=== PATIENT | female | born 1975 | race Caucasian/White ===

== ENCOUNTER → 2017-09-03 | Outpatient (CLI) | payer BC ==
--- NOTE | 2017-09-03 09:46 | REPMRS ---
Patient History The patient states she had a clinical breast exam in 08/21 Patient is nulliparous. Family history of colorectal cancer in paternal grandfather at age 50 or over and colorectal cancer in maternal cousin at age 53. Taking hormonal contraceptives for 25 years. Digital Woman Screen Mammo: September 03, 2017 - Exam #: [id number] Bilateral CC and MLO view(s) were taken. Technologist: Selina Kelly, Technologist Prior study comparison: August 18, 2016, digital woman screen mammo performed at [facility]. August 23, 2015, digital woman screen mammo performed at [facility]. September 20, 2014, digital woman screen mammo performed at [facility]. FINDINGS: There are scattered fibroglandular densities. There has been no change in the appearance of the mammogram from the prior studies. There is a mild amount of scattered fibroglandular density which is fairly symmetric. There is no interval development of dominant mass, architectural distortion, or clustered microcalcification suggestive of malignancy. ASSESSMENT: BI-RADS/ACR category 1 mammogram. Negative. Recommendation Routine screening mammogram in 1 year (for women over age 40). This mammogram was interpreted with the aid of an FDA-approved computer-aided dectection system. Electronically Signed By: Johan Gibbs MD 09/03/17 [id number]
== END ==
LOC: M WHC 08:51
PROVIDERS: ATTEND Nurse Practitioner Women's Health
DX: Z12.31 Encounter for screening mammogram for malignant neoplasm of breast (principal)

== ENCOUNTER → 2017-09-03 | Outpatient (REF) | payer BC | LOC: M SFHCWAGY 09:06 | PROVIDERS: ATTEND Nurse Practitioner Women's Health | DX: Z12.4 Encounter for screening for malignant neoplasm of cervix (principal) ==

== ENCOUNTER → 2018-07-05 | Outpatient (REF) | payer BC ==
[2018-07-07 08:07] LABS: LDL DIRECT 132 mg/dL (0-99)
== END ==
LOC: M LAB REF 18:35
DX: F41.1 Generalized anxiety disorder (principal)
CPT/HCPCS: 83721

== ENCOUNTER 2018-08-09 09:59 | Emergency (ER) | payer BC ==
[2018-08-09 11:04] LABS: ACETAMINOPHEN LEVEL < 2.0 UG/ML (10.0-30.0); ETHYL ALCOHOL (ETHANOL) 0.294 % (0.000-0.010); SALICYLATE LEVEL < 1.7 MG/DL (5.0-30.0)
[2018-08-09 11:17] LABS: ALBUMIN 3.1 GM/DL (3.2-5.2); ALBUMIN/GLOBULIN RATIO 0.76 (1.00-1.93); ALKALINE PHOSPHATASE 214 U/L (45-117); ALT/SGPT 194 U/L (12-78); AMYLASE 31 U/L (25-115); ANION GAP 13 MEQ/L (8-16); AST/SGOT 506 U/L (7-37); BILIRUBIN,DIRECT 0.5 MG/DL (0.0-0.2); BILIRUBIN,TOTAL 1.2 MG/DL (0.2-1.0); BLOOD UREA NITROGEN 10 MG/DL (7-18); CALCIUM LEVEL 7.7 MG/DL (8.5-10.1); CARBON DIOXIDE LEVEL 20 MEQ/L (21-32); CHLORIDE LEVEL 93 MEQ/L (98-107); CREATININE FOR GFR 0.56 MG/DL (0.55-1.30); GLOMERULAR FILTRATION RATE > 60.0 (>58); GLUCOSE, FASTING 152 MG/DL (70-100); LIPASE 429 U/L (73-393); POTASSIUM SERUM 3.9 MEQ/L (3.5-5.1); SODIUM LEVEL 126 MEQ/L (136-145); TOTAL PROTEIN 7.2 GM/DL (6.4-8.2)
[2018-08-09 11:18] LABS: BASO # 0.1 10^3/uL (0.0-0.2); BASO % 2.8 % (0.0-1.0); EOS % 0.8 % (0.0-3.0); HEMATOCRIT 41.1 % (36.0-47.0); IMMATURE GRANULOCYTE % 1.5 % (0-3.0); LYMPH % 25.3 % (24.0-44.0); MEAN CORPUSCULAR HEMOGLOBIN 36.9 pg (27.0-33.0); MEAN CORPUSCULAR HGB CONC 36.5 g/dl (32.0-36.5); MEAN CORPUSCULAR VOLUME 101.2 fl (80.0-96.0); MONO # 0.4 10^3/uL (0.0-0.8); MONO % 10.8 % (0.0-5.0); NEUTROPHILS # 2.4 10^3/uL (1.8-7.7); NEUTROPHILS % 58.8 % (36.0-66.0); PLATELET COUNT, AUTOMATED 197 10^3/uL (150-450); RED BLOOD COUNT 4.06 10^6/uL (4.00-5.40); RED CELL DISTRIBUTION WIDTH 12.5 % (11.5-14.5)
[2018-08-09 11:23] LABS: CONTROL LINE HCG INT CTR LINE PRESENT; HCG, SERUM QUALITATIVE NEGATIVE (NEGATIVE)
[2018-08-09 12:37] LABS: KETONE, URINE AUTO RFX TRACE mg/dL (NEGATIVE); LEUKOCYTE ESTERASE UR AUTO RFX NEGATIVE (NEGATIVE); MUCUS, URINE RFX SMALL (NEGATIVE); NITRITE, URINE AUTO RFX NEGATIVE (NEGATIVE); RBC, URINE AUTO RFX 1 /HPF (0-3); SPECIFIC GRAVITY UR AUTO RFX 1.021 (1.002-1.035); SQUAM EPITHELIAL CELL UR AURFX 7 /HPF (0-6); WBC, URINE AUTO RFX 3 /HPF (0-3)
[2018-08-09 12:48] LABS: AMPHETAMINES LEVEL URINE NEGATIVE (NEGATIVE); BARBITURATES URINE NEGATIVE (NEGATIVE); BENZODIAZEPINES URINE NEGATIVE (NEGATIVE); CANNABINOIDS URINE NEGATIVE (NEGATIVE); COCAINE METABOLITE URINE NEGATIVE (NEGATIVE); METHADONE URINE NEGATIVE (NEGATIVE); OPIATES URINE NEGATIVE (NEGATIVE); PHENCYCLIDINE URINE NEGATIVE (NEGATIVE)
[2018-08-09] MEDS: METOCLOPRAMIDE INJ 10MG/2ML VIAL (J2765) IV (13:03)
[2018-08-09] MEDS: diphenhydrAMINE INJ 50MG/ML VIAL (J1200) IV (13:04)
[2018-08-09 14:15] LABS: HEPATITIS B SURFACE ANTIGEN NEGATIVE (NEGATIVE)
[2018-08-09 14:42] LABS: HEPATITIS B CORE ANTIBODY IGM NEGATIVE (NEGATIVE)
[2018-08-09 14:45] LABS: HEPATITIS A ANTIBODY IGM NEGATIVE (NEGATIVE)
== END 2018-08-09 15:37 | disposition home or self-care (01) ==
LOC: M ED 09:59
DX: K85.20 Alcohol induced acute pancreatitis without necrosis or infection (principal); K70.30 Alcoholic cirrhosis of liver without ascites; I10 Essential (primary) hypertension; Z79.899 Other long term (current) drug therapy; F17.210 Nicotine dependence, cigarettes, uncomplicated
CPT/HCPCS: J1200

== ENCOUNTER → 2018-09-06 | Outpatient (CLI) | payer BC | LOC: M WHC 09:07 | DX: Z12.31 Encounter for screening mammogram for malignant neoplasm of breast (principal) | CPT/HCPCS: 77067 ==

== ENCOUNTER 2019-02-15 09:16 | Inpatient (IN) | payer BC ==
[~2019-02-15] VITALS: Ht 162.6 cm; Wt 86.9 kg
[~2019-02-15 09:16] MED LIST: BUSP15TA47 PO; HYDR-3363 PO; IBUP-1022 PO; LISI20TA PO; PROT1TAB2 PO; REGL10TA6 PO
[2019-02-15] MEDS ORDERED: LORA0.5T11 PO (09:28)
[2019-02-15] MEDS ORDERED: NS 1,000 ML IV ONE (09:30)
[2019-02-15 09:47] LABS: HEMATOCRIT 41.2 % (36.0-47.0); HEMOGLOBIN 14.2 g/dl (12.0-15.5); MEAN CORPUSCULAR HEMOGLOBIN 34.4 pg (27.0-33.0); MEAN CORPUSCULAR HGB CONC 34.5 g/dl (32.0-36.5); MEAN CORPUSCULAR VOLUME 99.8 fl (80.0-96.0); PLATELET COUNT, AUTOMATED 211 10^3/uL (150-450); RED BLOOD COUNT 4.13 10^6/uL (4.00-5.40); WHITE BLOOD COUNT 4.8 10^3/uL (4.0-10.0)
[2019-02-15 10:19] LABS: HCG, SERUM QUALITATIVE NEGATIVE (NEGATIVE)
[2019-02-15 10:53] LABS: ACETAMINOPHEN LEVEL < 2.0 UG/ML (10.0-30.0); ALBUMIN 3.6 GM/DL (3.2-5.2); ALT/SGPT 163 U/L (12-78); BILIRUBIN,DIRECT 0.8 MG/DL (0.0-0.2); BILIRUBIN,TOTAL 1.4 MG/DL (0.2-1.0); BLOOD UREA NITROGEN 11 MG/DL (7-18); CARBON DIOXIDE LEVEL 21 MEQ/L (21-32); CHLORIDE LEVEL 97 MEQ/L (98-107); CPK CREATINE PHOSPHOKINASE 206 U/L (26-192); CREATININE FOR GFR 0.54 MG/DL (0.55-1.30); ETHYL ALCOHOL (ETHANOL) 0.431 % (0.000-0.010); GLOMERULAR FILTRATION RATE > 60.0 (>58); GLUCOSE, FASTING 122 MG/DL (70-100); MAGNESIUM LEVEL 1.9 MG/DL (1.8-2.4); POTASSIUM SERUM 3.7 MEQ/L (3.5-5.1); SALICYLATE LEVEL < 1.7 MG/DL (5.0-30.0); SODIUM LEVEL 132 MEQ/L (136-145); TOTAL PROTEIN 7.4 GM/DL (6.4-8.2)
[2019-02-15] MEDS ORDERED: LORazepam 2 MG/ML VIAL (J2060) IV STA (12:11)
[2019-02-15] MEDS ORDERED: MULTIVITAMIN -ADULT INJECTION 10 ML, THIAMINE INJection 100 MG, FOLIC ACID 1 MG in NS 1... IV ONE (12:15)
[2019-02-15] MEDS ORDERED: ONDANSETRON 4MG/2ML VIAL (J2405) IV ONE ×2 (12:15→15:15)
[2019-02-15 12:27] LABS: AMPHETAMINES LEVEL URINE NEGATIVE (NEGATIVE); BARBITURATES URINE NEGATIVE (NEGATIVE); BENZODIAZEPINES URINE NEGATIVE (NEGATIVE); CANNABINOIDS URINE NEGATIVE (NEGATIVE); COCAINE METABOLITE URINE NEGATIVE (NEGATIVE); METHADONE URINE NEGATIVE (NEGATIVE); OPIATES URINE NEGATIVE (NEGATIVE); PHENCYCLIDINE URINE NEGATIVE (NEGATIVE)
[2019-02-15] MEDS ORDERED: PANTOPRAZOLE 40MG TAB (PROTONIX) PO ONE (16:45)
[2019-02-15] MEDS ORDERED: LORazepam 2 MG TAB PO PRN ×2 (17:00→21:00)
[2019-02-15 18:51] LABS: ETHYL ALCOHOL (ETHANOL) 0.145 % (0.000-0.010)
[2019-02-15] MEDS ORDERED: LORazepam 2 MG TAB PO STA (19:34)
[2019-02-15] MEDS ORDERED: cloNIDine 0.2 MG TAB PO ONE (19:45)
[2019-02-15] MEDS ORDERED: BUSP15TA47 PO (19:53)
[2019-02-15] MEDS ORDERED: HYDR-3363 PO (19:58)
[2019-02-15] MEDS ORDERED: REGL10TA6 PO (19:58)
[2019-02-15] MEDS ORDERED: IBUP1TAB6 PO (19:58)
[2019-02-15] MEDS ORDERED: SUMA50TA2 PO (20:00)
[2019-02-15] MEDS ORDERED: LARI1TAB5 PO (20:00)
[2019-02-15] MEDS ORDERED: THIAMINE HCL 200 MG/2 ML VIAL (J3411) IV ONE (20:00)
[2019-02-15] MEDS ORDERED: SODIUM CHLORIDE 0.9% 1000ML IV ONE (20:15)
[2019-02-15] MEDS: NS 1,000 ML IV SCH (20:18)
[2019-02-15] MEDS ORDERED: METOPROLOL 5 MG/5 ML VIAL IV STA (20:50)
--- NOTE | 2019-02-15 21:23 | HPEPDOC ---
[facility] Medical History & Physical Date of Admission February 15, 2019 Primary Care Physician: Jr Capps Collins Attending Physician: ROCIO EDWARDS MD History and Physical CHIEF COMPLAINT: Alcohol withdrawal HISTORY OF PRESENT ILLNESS: Patient is a 43 year old white female, past medical history of alcohol abuse, anxiety, hypertension, endometriosis and migraine headaches, who presents to the ED the morning of 02/15/19 with a chief complaint of self-reported alcohol intoxication and desire for medically assisted-withdrawal. In the emergency room, patient was started on CIWA protocol, a bolus of NS, Zofran for nausea. CBC was unremarkable, chemistries indicated a sodium of 132, total bilirubin of 1.4, AST/a LT of 295/163, mild elevation in alkaline phosphatase and CK. Toxicology was positive for ethyl alcohol on presentation with a value of 0.431, repeat level IX hours later revealed a value of 0.145. Patient reports a history of anxiety and increased depression following a recent breakup. Patient self reports making suicidal statements to her mother on 02/12/19, that she currently denies any SI or HI. She was scheduled to be admitted to the [facility], however, patient has remained tachycardic throughout most the day with a pulse consistently in the 130s. Hospitalist team was contacted for admission and further overnight management regarding the patient's alcohol withdrawal and tachycardia. PAST MEDICAL HISTORY: Alcohol abuse Anxiety Hypertension Endometriosis Migraine headaches PAST SURGICAL HISTORY: Appendectomy Cholecystectomy Liver biopsy Liver lesion resection Repair of diaphragm Incision hernia repair SOCIAL HISTORY: Marital status: Single Resides in: Currently residing with mother Employment: [employer] Tobacco use: Former smoker, quit greater than 10 years ago ETOH: Active alcohol abuse Illicit drug use: Denies other illicit drugs FAMILY HISTORY: Father: , 58, thymus cancer Mother: Alive, 70, osteoporosis, hyperlipidemia, sarcoid, diabetes ALLERGIES: Please see below. REVIEW OF SYSTEMS: CONSTITUTIONAL: Denies recent history of subjective fevers, chills, night sweats or changes in weight HEENT: Reports current dizziness, tremulousness, lightheadedness, Denies headache CARDIOVASCULAR: Reports nonspecific/diffuse chest pressure/tightness, subjective tachycardia, denies palpitations RESPIRATORY: Denies difficulty breathing, recent cough GASTROINTESTINAL: Reports generalized abdominal discomfort and nausea, one-week history of diarrhea, denies reflux, constipation GENITOURINARY: Denies dysuria, hematuria SKIN: Denies rash, new or evolving lesions NEUROLOGICAL: Denies any numbness or tingling in her extremities, denies focal neurologic deficit PSYCHIATRIC: Reports history of anxiety, treated BuSpar and hypnotherapy exacerbated by recent breakup, denies homicidal or suicidal ideation HOME MEDICATIONS: Please see below. PHYSICAL EXAMINATION: VITAL SIGNS: Temperature 98.9, pulse 132, respiratory rate 20, blood pressure 141/74 (96), pulse oximetry 96 % on room air. GENERAL APPEARANCE: Patient was found in emergency room, seated on the side of her hospital bed, wearing hospital clothing, patient was alert and oriented, able to answer questions participate in her care. Flush-appearing HEENT: Normocephalic, atraumatic EOMI, good oral hygiene, trachea midline CARDIOVASCULAR: Tachycardic, regular rhythm, no murmurs gallops or rubs, normal S1 and S2 LUNGS: Clear to auscultation bilaterally, good air movement, free of wheezing rales or rhonchi ABDOMEN: Soft, nondistended, nontender EXTREMITIES: Peripheral pulses equal bilaterally in both upper and lower extremities. No lower edema, no calf tenderness bilaterally NEUROLOGICAL: Mild upper extremity tremulousness, no aphasia, or slurring of speech, no focal neurologic deficit, PSYCHIATRIC: Mood and affect appropriate given patient's current situation LABORATORY DATA: See below. ASSESSMENT: Patient is a 43-year-old white female who presents to emergency department today self reporting alcohol intoxication and desire for medically assisted withdrawal. Past medical history significant for alcohol abuse, anxiety, hypertension, endometriosis, migraine headaches. Emergency department, patient was started on CIWA protocol. Given persistent tachycardia, patient was admitted for overnight observation prior to IM admission. PLAN: 1. Acute alcohol withdrawal Continue on CIWA protocol IV fluid hydration, monitor electrolytes BMP in the morning Sitter overnight 2. Depression, history of suicidal threats Patient denies current SI/HI Plan for IMHU admission following resolution of tachycardia Sitter overnight 3. Hypertension BP of 141/74 (96). Will continue to monitor 4. Anxiety hold home BusPar overnight, continue with Ativan 5. Endometriosis Continue home control medication, to be brought in by patient Vital Signs Vital Signs Date Time Temp Pulse Resp B/P (MAP) Pulse Ox O2 Delivery O2 Flow Rate FiO2 02/15/19 18:55 98.6 132 20 141/74 (96) 96 Room Air Laboratory Data Labs 24H Laboratory Tests 2 02/15/19 09:36: Nucleated Red Blood Cells % (auto) 0.0, Anion Gap 14, Glomerular Filtration Rate > 60.0, Calcium Level 8.0L, Magnesium Level 1.9, Aspartate Amino Transf (AST/SGOT) 295H, Alanine Aminotransferase (ALT/SGPT) 163H, Alkaline Phosphatase 164H, Total Bilirubin 1.4H, Direct Bilirubin 0.8H, Total Creatine Kinase 206H, Total Protein 7.4, Albumin 3.6, Albumin/Globulin Ratio 0.95L, Thyroid Stimulating Hormone (TSH) 1.470, Human Chorionic Gonadotropin, Qual NEGATIVE, Salicylates Level < 1.7L, Acetaminophen Level < 2.0L, Ethyl Alcohol Level 0.431H 02/15/19 11:32: Urine Amphetamines Screen NEGATIVE, Urine Benzodiazepines Screen NEGATIVE, Urine Opiates Screen NEGATIVE, Urine Methadone Screen NEGATIVE, Urine Barbiturates Screen NEGATIVE, Urine Phencyclidine Screen NEGATIVE, Urine Cocaine Metabolite Screen NEGATIVE, Urine Cannabinoids Screen NEGATIVE 02/15/19 18:10: Ethyl Alcohol Level 0.145H CBC/BMP Laboratory Tests 02/15/19 09:36 Red Blood Count 4.13, Mean Corpuscular Volume 99.8 H, Mean Corpuscular Hemoglobin 34.4 H, Mean Corpuscular Hemoglobin Concent 34.5, Red Cell Distribution Width 11.9 Home Medications Scheduled Buspirone HCl (Buspirone HCl) 15 Mg Tab, 30 MG PO QAM Buspirone HCl (Buspirone HCl) 15 Mg Tablet, 15 MG PO QPM Folic Acid (Folic Acid) 1 Mg Tablet, 1 MG PO DAILY Hydroxyzine HCl (Hydroxyzine HCl) 25 Mg Tablet, 25 MG PO TID Lisinopril/Hydrochlorothiazide (Lisinopril-Hctz 20-12.5 mg Tab) 1 Tab Tab, 1 TAB PO DAILY Multivitamins (Thera M Plus Tablet) 1 Each Tablet, 1 TAB PO DAILY Norethindrone AC-Eth Estradiol (Kassy 21 1-20 Tablet) 1 Each Tablet, 1 TAB PO DAILY Sumatriptan Succinate (Sumatriptan Succinate) 50 Mg Tablet, 50 MG PO ASDIRECTED LAST TAKEN ABOUT 3 WEEKS AGO Thiamine HCl (Thiamine HCl) 100 Mg Tablet, 1 TAB PO DAILY Scheduled PRN Ibuprofen (Ibuprofen) 600 Mg Tablet, 600 MG PO Q6H PRN for PAIN LAST TAKEN ABOUT 2 WEEKS AGO Lorazepam (Lorazepam) 0.5 Mg Tablet, 0.5 MG PO BID PRN for anxiety Lorazepam (Lorazepam) 2 Mg Tablet, 2 MG PO Q6HP PRN for ANXIETY/AGITATION Metoclopramide HCl (Reglan) 10 Mg Tablet, 10 MG PO Q6H PRN for NAUSEA Allergies Coded Allergies: No Known Allergies (Verified , 08/09/18) A-FIB/CHADSVASC A-FIB History Current/History of A-Fib/PAF?: No GME ATTESTATION GME ATTESTATION My faculty preceptor for this patient encounter was physically present during the encounter and was fully available. All aspects of the patient interview, examination, medical decision making process, and medical care plan development were reviewed and approved by the faculty preceptor. The faculty preceptor is aware and concurs with the plan as stated in the body of this note and will attest to such by his/her cosignature. RADHA BARR DO February 15, 2019 21:23
[2019-02-15 22:08] LABS: BLOOD UREA NITROGEN 11 MG/DL (7-18); CALCIUM LEVEL 7.4 MG/DL (8.5-10.1); CARBON DIOXIDE LEVEL 20 MEQ/L (21-32); CHLORIDE LEVEL 102 MEQ/L (98-107); CREATININE FOR GFR 0.62 MG/DL (0.55-1.30); GLOMERULAR FILTRATION RATE > 60.0 (>58); GLUCOSE, FASTING 148 MG/DL (70-100); POTASSIUM SERUM 3.6 MEQ/L (3.5-5.1); SODIUM LEVEL 134 MEQ/L (136-145)
[2019-02-15 22:45] VITALS: BP_SYST 140; BP_SYST 142; BP_DIAS 90; BP_DIAS 92
[2019-02-15 22:52] VITALS: BP 142/90
[2019-02-15] MEDS: THIAMINE 100 MG TAB PO SCH (23:58)
[2019-02-15] MEDS: LORazepam 2 MG TAB PO SCH (23:59)
[2019-02-16] VITALS (7 sets, daily range): BP systolic 138–180; BP diastolic 70–104
[2019-02-16] MEDS: LORazepam 2 MG TAB PO SCH ×4 (05:46→20:05)
[2019-02-16] MEDS: NS 1,000 ML IV SCH (05:46)
[2019-02-16 06:31] LABS: ALBUMIN 2.8 GM/DL (3.2-5.2); ALT/SGPT 115 U/L (12-78); BILIRUBIN,TOTAL 2.1 MG/DL (0.2-1.0); BLOOD UREA NITROGEN 8 MG/DL (7-18); CALCIUM LEVEL 7.3 MG/DL (8.5-10.1); CARBON DIOXIDE LEVEL 23 MEQ/L (21-32); CHLORIDE LEVEL 106 MEQ/L (98-107); CREATININE FOR GFR 0.48 MG/DL (0.55-1.30); GLOMERULAR FILTRATION RATE > 60.0 (>58); GLUCOSE, FASTING 119 MG/DL (70-100); MAGNESIUM LEVEL 1.9 MG/DL (1.8-2.4); PHOSPHORUS LEVEL 1.3 MG/DL (2.5-4.9); POTASSIUM SERUM 3.5 MEQ/L (3.5-5.1); SODIUM LEVEL 136 MEQ/L (136-145); TOTAL PROTEIN 6.2 GM/DL (6.4-8.2)
--- NOTE | 2019-02-16 08:53 | REP ---
Right upper quadrant sonography: History: Abnormal liver function studies. Comparison CT study is from August 09, 2018. Comparison hepatic sonography April 21, 2011. Sonographic findings: The gallbladder surgically absent. There is marked fatty infiltration of the liver with very poor insonation of the liver parenchyma as a result. Poor sonographic penetration. There is a cyst in the left lobe of the liver measuring 1.3 x 2.0 x 1.2 cm superficially. No other focal liver lesion is appreciated sonographically. Common bile duct is normal measuring 0.5 cm in greatest diameter. There is no evidence of ascites or right renal abnormality. The right kidney measures 11.6 x 6.5 x 6.1 cm. Limited views of the pancreas show no abnormality. Impression: Marked fatty infiltration of the liver with poor insonation. Small left lobe liver cyst, 2 cm in diameter. Normal CBD post cholecystectomy. Otherwise negative. Electronically Signed by Timmy iGbbs MD 02/16/2019 01:39 P
[2019-02-16] MEDS ORDERED: POTASSIUM PHOSPHATE INJ 15 MMOL in D5W 250 ML IV ONE (09:00)
[2019-02-16] MEDS: FOLIC ACID 1 MG TAB PO SCH (09:43)
[2019-02-16] MEDS: THIAMINE 100 MG TAB PO SCH ×2 (09:43→20:05)
[2019-02-16] MEDS: MULTIVITAMINS/MINERALS THERAP 1 TAB PO SCH (09:43)
--- NOTE | 2019-02-16 10:09 | IPNPDOC ---
Date Seen The patient was seen on 02/16/19. Progress Note SUBJECTIVE: Patient tells me that she is feeling better today, he is less anxious he tells me she feels less shaky. She complains of some nausea but it is improved and altogether she is getting better OBJECTIVE PHYSICAL EXAMINATION: VITAL SIGNS: Please see below. GENERAL: Morbidly obese middle-age female resting comfortably in bed in no acute distress HEENT:she is not diaphoretic, likely rosacea her face appears flushed no elevation CVP CARDIOVASCULAR: S1-S2 tachycardic but regular no additional heart sounds are appreciated. RESPIRATORY: Clear to auscultation bilaterally. ABDOMINAL: Grossly obese bowel sounds present abdomen is soft nontender no shifting dullness or fluid wave EXTREMITIES: No cyanosis or edema NEUROLOGICAL: Cranial nerves II through XII grossly intact no gross focal deficits spontaneous moving all 4 extremities PSYCHOLOGICAL: Good spirits today denies suicidal ideation at this time LABORATORY DATA, IMAGING STUDIES, MICROBIOLOGY: Please see below. DVT prophylaxis ordered?: Teds and sequentials ASSESSMENT AND PLAN: This is a 43-year-old female with alcohol withdrawal and suicidal ideation. PROBLEMS: 1. Alcohol abuse and withdrawal: Cessation counseling provided for the time being she is on thiamine and folic acid as well as a multivitamin. She is tolerating a regular diet and discontinue her IV fluids. She is still tachycardic or symptoms are greatly improved from the previously documented visits. I'll monitor for an additional 24 hours and sure that she is able to be well controlled. Medications. I suspect she'll need medical clearance as early as tomorrow morning. 2. Suicidal ideation: Previously expressed to Dr. Price, once medically. I will have her evaluated addition by psychiatry. For the time being continue with one-to-one sitter. 3. Alcoholic hepatitis: Likely secondary to acute alcohol intoxication liver function test. Be downtrending at this time continue to monitor. Follow-up liver ultrasound 4. Hypophosphatemia: We'll replace 5. Macrocytosis: Likely secondary to folate and B12 deficiency related to ongoing alcohol abuse she is on supplementation DISPOSITION: Likely home versus inpatient mental health unit tomorrow. A-FIB/CHADSVASC A-FIB History Current/History of A-Fib/PAF?: No VS, I&O, 24H, Fishbone Vital Signs/I&O Vital Signs Date Time Temp Pulse Resp B/P (MAP) Pulse Ox O2 Delivery O2 Flow Rate FiO2 02/16/19 08:00 98.7 115 21 150/80 (103) 97 02/15/19 22:30 Room Air I&O- Last 24 Hours up to 6 AM 02/16/19 06:00 Intake Total 745 ml Output Total 800 ml Balance -55 ml Laboratory Data 24H LABS Laboratory Tests 2 02/15/19 11:32: Urine Amphetamines Screen NEGATIVE, Urine Benzodiazepines Screen NEGATIVE, Urine Opiates Screen NEGATIVE, Urine Methadone Screen NEGATIVE, Urine Barbiturates Screen NEGATIVE, Urine Phencyclidine Screen NEGATIVE, Urine Cocaine Metabolite Screen NEGATIVE, Urine Cannabinoids Screen NEGATIVE 02/15/19 18:10: Anion Gap 12, Glomerular Filtration Rate > 60.0, Blood Urea Nitrogen 11, Creatinine 0.62, Sodium Level 134L, Potassium Level 3.6, Chloride Level 102, Carbon Dioxide Level 20L, Calcium Level 7.4L, Ethyl Alcohol Level 0.145H 02/16/19 05:36: Anion Gap 7L, Glomerular Filtration Rate > 60.0, Blood Urea Nitrogen 8, Creati nine 0.48L, Sodium Level 136, Potassium Level 3.5, Chloride Level 106, Carbon Dioxide Level 23, Calcium Level 7.3L, Ethyl Alcohol Level < 0.003, Phosphorus Level 1.3L, Aspartate Amino Transf (AST/SGOT) 186H, Alanine Aminotransferase (ALT/SGPT) 115H, Alkaline Phosphatase 126H, Total Bilirubin 2.1H, Total Protein 6.2L, Albumin 2.8#L, Magnesium Level 1.9, Albumin/Globulin Ratio 0.82L CBC/BMP Laboratory Tests 02/15/19 18:10 Calcium Level 7.4 L 02/16/19 05:36 Calcium Level 7.3 L, Phosphorus Level 1.3 L, Aspartate Amino Transf (AST/SGOT) 186 H, Alanine Aminotransferase (ALT/SGPT) 115 H, Alkaline Phosphatase 126 H, Total Bilirubin 2.1 H, Total Protein 6.2 L, Albumin 2.8 #L OMAIRA LANGFORD MD February 16, 2019 10:09
[2019-02-16] MEDS ORDERED: SLF 3 ML SYR IV PRN (10:30)
--- NOTE | 2019-02-16 11:29 | ECGEPIP ---
Stationary ECG Study [facility] - ED Test Date: 2019-02-15 Pat Name: JAMAL HENRIQUEZ Department: Room: - Gender: F General Clerk: : [id number] Requested By: Bette Smith Order Number: [id number] Reading MD: Bette Smith Measurements Intervals [place] Rate: 85 P: -17 MO: 136 QRS: 35 QRSD: 94 T: 72 QT: 369 QTc: 440 Interpretive Statements SINUS RHYTHM NONSPECIFIC T-WAVE ABNORMALITY DECREASED RATE 08/09/18 Electronically Signed On 02-16-2019 11:29:09 EDT by Bette Smith
[2019-02-16] MEDS ORDERED: SUMAtriptan SUCCINATE 25 MG TAB PO PRN (13:00)
[2019-02-16] MEDS ORDERED: METOCLOPRAMIDE 10 MG TAB PO PRN (13:00)
[2019-02-16] MEDS ORDERED: LORazepam 2 MG/ML VIAL (J2060) IV ONE (15:00)
[2019-02-16] MEDS: hydrOXYzine 25 MG TAB PO SCH ×3 (16:00→20:05)
[2019-02-16] MEDS: SLF 3 ML SYR IV SCH ×2 (16:45→22:12)
[2019-02-16] MEDS: busPIRone 5 MG TAB PO SCH (20:05)
[2019-02-17] VITALS (10 sets, daily range): BP systolic 140–188; BP diastolic 80–110
[2019-02-17] MEDS: LORazepam 2 MG TAB PO SCH ×5 (00:19→23:46)
[2019-02-17] MEDS: SLF 3 ML SYR IV SCH ×3 (06:00→23:46)
[2019-02-17] MEDS: LARIN PO SCH (09:00)
[2019-02-17 09:12] LABS: HEMATOCRIT 34.4 % (36.0-47.0); MEAN CORPUSCULAR HEMOGLOBIN 34.9 pg (27.0-33.0); MEAN CORPUSCULAR HGB CONC 34.3 g/dl (32.0-36.5); MEAN CORPUSCULAR VOLUME 101.8 fl (80.0-96.0); PLATELET COUNT, AUTOMATED 138 10^3/uL (150-450); RED BLOOD COUNT 3.38 10^6/uL (4.00-5.40); WHITE BLOOD COUNT 5.7 10^3/uL (4.0-10.0)
[2019-02-17 09:23] LABS: HEMOGLOBIN 11.8 g/dl (12.0-15.5)
[2019-02-17 09:42] LABS: ALBUMIN 3.3 GM/DL (3.2-5.2); ALT/SGPT 114 U/L (12-78); BILIRUBIN,TOTAL 1.6 MG/DL (0.2-1.0); BLOOD UREA NITROGEN 7 MG/DL (7-18); CALCIUM LEVEL 9.3 MG/DL (8.5-10.1); CARBON DIOXIDE LEVEL 25 MEQ/L (21-32); CHLORIDE LEVEL 105 MEQ/L (98-107); CREATININE FOR GFR 0.56 MG/DL (0.55-1.30); GLOMERULAR FILTRATION RATE > 60.0 (>58); GLUCOSE, FASTING 127 MG/DL (70-100); MAGNESIUM LEVEL 1.8 MG/DL (1.8-2.4); PHOSPHORUS LEVEL 3.2 MG/DL (2.5-4.9); SODIUM LEVEL 138 MEQ/L (136-145); TOTAL PROTEIN 7.1 GM/DL (6.4-8.2)
[2019-02-17] MEDS: busPIRone 10 MG TAB PO SCH (10:00)
[2019-02-17] MEDS: FOLIC ACID 1 MG TAB PO SCH (10:01)
[2019-02-17] MEDS: THIAMINE 100 MG TAB PO SCH ×2 (10:01→20:35)
[2019-02-17] MEDS: hydrOXYzine 25 MG TAB PO SCH ×3 (10:01→20:35)
[2019-02-17] MEDS: MULTIVITAMINS/MINERALS THERAP 1 TAB PO SCH (10:01)
[2019-02-17] MEDS ORDERED: POTASSIUM CHLORIDE 10 MEQ SR TABLET PO ONE (10:30)
[2019-02-17] MEDS: LISINOPRIL 20 MG TAB PO SCH (10:57)
--- NOTE | 2019-02-17 17:41 | IPNPDOC ---
Date Seen The patient was seen on 02/17/19. Progress Note SUBJECTIVE: Patient tells me that she is feeling better, she tells me she has small headache that she is less tremulous she tells me she was able to sleep all night and is feeling much better. She doesn't she is scared to leave the hospital and that she may go back to drinking alcohol. OBJECTIVE PHYSICAL EXAMINATION: VITAL SIGNS: Please see below. GENERAL: Morbidly obese middle-age female sleeping comfortably in bed in no acute distress easily arousable HEENT:she is not diaphoretic, likely rosacea her face appears flushed no elevation CVP CARDIOVASCULAR: S1-S2 tachycardic but regular no additional heart sounds are appreciated RESPIRATORY: Clear to auscultation bilaterally. No wheezes rhonchi is a rail's ABDOMINAL: Grossly obese bowel sounds present abdomen is soft nontender no shifting dullness or fluid wave EXTREMITIES: No clubbing cyanosis or edema NEUROLOGICAL: Cranial nerves II through XII grossly intact no gross focal deficits spontaneous moving all 4 extremities PSYCHOLOGICAL: Good spirits today denies suicidal ideation at this time LABORATORY DATA, IMAGING STUDIES, MICROBIOLOGY: Please see below. DVT prophylaxis ordered?: Teds and sequentials ASSESSMENT AND PLAN: This is a 43-year-old female with alcohol withdrawal and suicidal ideation. PROBLEMS: 1. Alcohol abuse and withdrawal: Cessation counseling provided, she is on thiamine and folic acid as well as a multivitamin. She is tolerating a regular diet. She is still tachycardic otherwise her symptoms are greatly improved. I do still have her on standing Ativan and she is comfortable and tolerating this well from my perspective she is medically clear 2. Suicidal ideation: Previously expressed to Dr. Price, I have restarted Dr. Cruz psychiatry and asked for consultation for evaluation for inpatient mental health admission continue with one-to-one sitter 3. Alcoholic hepatitis: Likely secondary to acute alcohol intoxication liver function test. Be downtrending at this time continue to monitor. 4. Hypophosphatemia: Resolved 5. Macrocytosis: Likely secondary to folate and B12 deficiency related to ongoing alcohol abuse she is on supplementation 6. Hypokalemia. I will resume her home lisinopril and replace by mouth 7. Hypertension: The rest of her withdrawal symptoms appear to be adequately managed I suspect this is her baseline hypertension emerging. I'll restart her home lisinopril and hydrochlorothiazide as needed DISPOSITION: Pending psych evaluation A-FIB/CHADSVASC A-FIB History Current/History of A-Fib/PAF?: No VS, I&O, 24H, Fishbone Vital Signs/I&O Vital Signs Date Time Temp Pulse Resp B/P (MAP) Pulse Ox O2 Delivery O2 Flow Rate FiO2 02/17/19 13:30 148/92 (110) 02/17/19 13:00 115 02/17/19 12:00 98.3 21 96 02/15/19 22:30 Room Air I&O- Last 24 Hours up to 6 AM 02/17/19 06:00 Intake Total 720 ml Output Total 3100 ml Balance -2380 ml Laboratory Data 24H LABS Laboratory Tests 2 02/17/19 07:31: Nucleated Red Blood Cells % (auto) 0.0, Anion Gap 8, Glomerular Filtration Rate > 60.0, Blood Urea Nitrogen 7, Creatinine 0.56, Sodium Level 138, Potassium Level 3.0L, Chloride Level 105, Carbon Dioxide Level 25, Calcium Level 9.3#, Phosphorus Level 3.2#, Aspartate Amino Transf (AST/SGOT) 146H, Alanine Aminotransferase (ALT/SGPT) 114H, Alkaline Phosphatase 146H, Total Bilirubin 1.6H, Total Protein 7.1, Albumin 3.3, Magnesium Level 1.8, Albumin/Globulin Ratio 0.87L CBC/BMP Laboratory Tests 02/17/19 07:31 Red Blood Count 3.38 L, Mean Corpuscular Volume 101.8 H, Mean Corpuscular Hemoglobin 34.9 H, Mean Corpuscular Hemoglobin Concent 34.3, Red Cell Distribution Width 11.6, Calcium Level 9.3 #, Phosphorus Level 3.2 #, Aspartate Amino Transf (AST/SGOT) 146 H, Alanine Aminotransferase (ALT/SGPT) 114 H, Alkaline Phosphatase 146 H, Total Bilirubin 1.6 H, Total Protein 7.1, Albumin 3.3 OMAIRA LANGFORD MD February 17, 2019 17:41
[2019-02-17] MEDS: hydroCHLOROthiazide 12.5 MG CAPSULE PO SCH (18:08)
[2019-02-17] MEDS ORDERED: IBUPROFEN 400 MG TAB PO PRN (19:00)
[2019-02-17] MEDS: busPIRone 5 MG TAB PO SCH (20:35)
[2019-02-18] VITALS: BP 140/80
[2019-02-18 04:00] VITALS: BP_SYST 146; BP_DIAS 80; BP_DIAS 82
[2019-02-18] MEDS: LORazepam 2 MG TAB PO SCH (05:47)
[2019-02-18] MEDS: SLF 3 ML SYR IV SCH (05:49)
[2019-02-18 08:00] VITALS: BP 152/96
[2019-02-18] MEDS: busPIRone 10 MG TAB PO SCH (08:24)
[2019-02-18] MEDS: hydrOXYzine 25 MG TAB PO SCH (08:24)
[2019-02-18] MEDS: hydroCHLOROthiazide 12.5 MG CAPSULE PO SCH (08:24)
[2019-02-18 08:25] VITALS: BP 152/96
[2019-02-18] MEDS: MULTIVITAMINS/MINERALS THERAP 1 TAB PO SCH (08:25)
[2019-02-18] MEDS: LISINOPRIL 20 MG TAB PO SCH (08:25)
[2019-02-18] MEDS: LARIN PO SCH (08:25)
[2019-02-18] MEDS: THIAMINE 100 MG TAB PO SCH (08:25)
[2019-02-18] MEDS: FOLIC ACID 1 MG TAB PO SCH (08:25)
[2019-02-18] MEDS ORDERED: VITMTA PO (10:04)
[2019-02-18] MEDS ORDERED: THIA100T7 PO (10:04)
[2019-02-18] MEDS ORDERED: LORA2TA PO (10:04)
[2019-02-18] MEDS ORDERED: FOLI1TAB11 PO (10:04)
--- NOTE | 2019-02-18 14:17 | DSES ---
DATE OF ADMISSION: 02/15/2019 DATE OF DISCHARGE: DISCHARGE DIAGNOSIS: Alcohol withdrawal. SECONDARY DIAGNOSES: 1. Suicidal ideation. 2. Alcoholic hepatitis. 3. Hypophosphatemia. 4. Macrocytosis. 5. Hypokalemia. 6. Hypertension. HOSPITAL COURSE: The patient is a 43-year-old female who is known to have alcohol abuse who presented with suicidal ideation. In the emergency room, she was felt to be at high risk for developing delirium tremens and as such was admitted to the hospitalist service. She was observed by a one-to-one sitter on CIWA protocol and was requiring Ativan standing 2 mg every 6 hours. She was observed for greater than 24 hours with good control of her symptoms and no significant evidence of delirium tremens. She was medically cleared and seen by Dr. Cruz of psychiatry, who felt that she was not suicidal at that time and did not necessitate involuntary admission. The patient was offered voluntary admission to inpatient mental health here at [facility], which she declined. She considered inpatient and mental health admission in [place] versus rehabilitation. She is afraid that if she goes home that she will continue drinking. I have advised her to go to the care of family or go to inpatient rehabilitation versus inpatient mental health. Patient and family services (PFS) has been involved and helped in aiding the patient and her family regarding addiction services. OBJECTIVE: This morning, the patient tells me that she feels well and has no complaints and would like to go home. VITAL SIGNS: Temperature 97.8, pulse 104, respiratory rate 18, blood pressure 152/96, oxygen saturation 97% on room air. GENERAL: She is an obese, middle aged, female sleeping peacefully in bed and easily awoken. She does not appear to be in any acute distress. HEENT: Cranial nerves II through XII are grossly intact. She has moist mucous membranes. No elevation in central venous pressure. CARDIOVASCULAR EXAM: S1, S2 regular. RESPIRATORY EXAM: She is mildly tachycardic. Respiratory exam is quite clear. She is not diaphoretic. She is not tremulous. ABDOMINAL EXAM: Grossly obese. EXTREMITIES: No cyanosis or edema. LABORATORY STUDIES: WBC 5.7, hemoglobin 11.8, platelet count is 138. Chemistry panel: Sodium 138, potassium 3.0, repleted. Chloride 105, bicarbonate 25, BUN 7, creatinine 0.5, magnesium 1.8, repleted, phosphorous 1.3 and repleted. Total bilirubin 1.6, AST 146, down from a peak of 295, ALT 114, down from a peak of 163, alkaline phosphatase 146, down from a peak of 164. Toxicology was positive for alcohol with a level of 0.431 at the time of admission. IMAGING: She did have a liver ultrasound, which revealed marked fatty infiltration of the liver with poor insinuation, left lobe of the liver cyst, 2 cm in diameter. ASSESSMENT AND PLAN: This is a 43-year-old female with alcohol abuse and suicidal ideation. 1. Alcohol abuse and alcoholic hepatitis. Alcoholic hepatitis appears to be improving with cessation of alcohol. Regarding her alcohol abuse, she has been provided with folic acid, thiamine and multivitamin. She has been provided with Ativan 2 mg as needed. She will be discharged on this as well, as she is normally on benzodiazepines as needed in addition to this. I have advised her to slowly wean herself off based on her symptoms and needs. She has been advised to seek out addiction services or inpatient rehabilitation or inpatient mental health services for voluntary admission. At this time, her and her family are considering their options. 2. Suicidal ideation. As outlined above, she has been cleared by Dr. Cruz of psychiatry. 3. Hypophosphatemia, resolved. 4. Macrocytosis, likely secondary to alcohol abuse. She is continued on thiamine, folic acid and multivitamin. 5. Hypokalemia, repleted. 6. Hypertension. Her home medications have been resumed. She is still mildly hypertensive. Would recommend she have outpatient followup with her primary care provider. It may be related to her alcohol withdrawal syndrome, which is resolving. DISPOSITION: The patient's clinical syndrome is improved. She is being discharged to the care of her family. She is to followup with her primary care provider within 7 days and behavioral health as soon as possible and addiction services. Her activity is as tolerated. Diet is as prior to admission. She is to return to the emergency room if her symptoms worsen. MEDICATIONS: At the time of discharge: - folic acid 1 mg daily - lorazepam 2 mg every 6 hours as needed for anxiety or agitation, maximum dose of four tablets per day, #16 tablets dispensed - multivitamin one daily - thiamine 100 mg daily - buspirone 30 mg every morning and 50 mg every evening - hydroxyzine 25 mg three times a day - ibuprofen 600 mg every 6 hours as needed for pain - lisinopril/hydrochlorothiazide 20/12.5 mg one tablet daily - lorazepam 0.5 mg twice a day as needed for anxiety - Reglan 10 mg every 6 hours as needed for nausea - Kassy 21 10/24 tablet daily - sumatriptan 50 mg as directed 45 minutes was spent organizing disposition.
== END 2019-02-18 11:28 | disposition home or self-care (01) | DRG 775 ==
LOC: M ED 09:16 → EDBD 09:16 → M ED INP 20:50 → M PCU 22:38
PROVIDERS: ADMIT Internal Medicine; ATTEND Internal Medicine
DX: F10.239 Alcohol dependence with withdrawal, unspecified (principal); R45.851 Suicidal ideations; K70.10 Alcoholic hepatitis without ascites; I10 Essential (primary) hypertension; E87.6 Hypokalemia; E83.39 Other disorders of phosphorus metabolism; F41.9 Anxiety disorder, unspecified; G43.909 Migraine, unspecified, not intractable, without status migrainosus; Z87.891 Personal history of nicotine dependence; F32.9 Major depressive disorder, single episode, unspecified; D75.89 Other specified diseases of blood and blood-forming organs

== ENCOUNTER → 2020-03-23 | Outpatient (CLI) | payer BC ==
[~2020-03-23] MED LIST changes: +FOLI1TAB11 PO; +IBUP1TAB6 PO; +LARI1TAB5 PO; -LISI20TA PO; +LISI20TA35 PO; +LORA0.5T5 PO; +LORA2TA PO; +SUMA50TA2 PO; +THIA100T7 PO; +VITMTA PO
--- NOTE | 2020-03-23 10:43 | REPMRS ---
Patient History The patient states she has not had a clinical breast exam in over a year. Family history of colorectal cancer at age 50 or over in paternal grandfather, colorectal cancer at age 53 in maternal cousin. Taking hormonal contraceptives for 26 years. Digital Woman Screen Mammo: March 23, 2020 - Exam #: [id number] Bilateral CC and MLO view(s) were taken. Technologist: Maile Dorantes Technologist Prior study comparison: September 06, 2018, bilateral digital woman screen mammo performed at [facility]. September 03, 2017, digital woman screen mammo performed at [facility]. August 18, 2016, digital woman screen mammo performed at [facility]. FINDINGS: There are scattered fibroglandular densities. The Volpara volumetric breast density category is:B. There has been no change in the appearance of the mammogram from the prior studies. There is a mild amount of scattered fibroglandular density which is fairly symmetric. There is no interval development of dominant mass, architectural distortion, or grouped microcalcification suggestive of malignancy. 3-D tomosynthesis shows no additional findings. Assessment: BI-RADS/ACR category 1 mammogram. Negative Mammogram. Recommendation Routine screening mammogram of both breasts in 1 year (for women over age 40). This patient's Lifetime Breast Cancer Risk is estimated at 13.7 %. This mammogram was interpreted with the aid of an FDA-approved computer-aided dectection system. Electronically Signed By: Johan Gibbs MD 03/23/20 2116
== END ==
LOC: M WHC 09:58
PROVIDERS: ATTEND Nurse Practitioner Women's Health
DX: Z12.31 Encounter for screening mammogram for malignant neoplasm of breast (principal)

== ENCOUNTER → 2021-03-25 | Outpatient (CLI) | payer BC ==
--- NOTE | 2021-03-25 10:40 | REPMRS ---
Patient History The patient states she had a clinical breast exam in March 2021. Family history of colorectal cancer at age 50 or over in paternal grandfather, colorectal cancer at age 53 in maternal cousin. Taking hormonal contraceptives for 27 years. Patient states no breast complaints today. Patient has signed MRS History Sheet. Digital Woman Screen Mammo: March 25, 2021 - Exam #: [id number] Bilateral CC and MLO view(s) were taken. Technologist: Selina Kelly, Technologist Prior study comparison: March 23, 2020, bilateral digital woman screen mammo performed at [facility]. September 06, 2018, bilateral digital woman screen mammo performed at [facility]. September 03, 2017, digital woman screen mammo performed at [facility]. FINDINGS: There are scattered fibroglandular densities. The Volpara volumetric breast density category is:B. There has been no change in the appearance of the mammogram from the prior studies. There is a mild amount of scattered fibroglandular density which is fairly symmetric. There is no interval development of dominant mass, architectural distortion, or grouped microcalcification suggestive of malignancy. 3-D tomosynthesis shows no additional findings. Assessment: BI-RADS/ACR category 1 mammogram. Negative Mammogram. Recommendation Routine screening mammogram of both breasts in 1 year (for women over age 40). This patient's [facility] Lifetime Breast Cancer Risk is estimated at 13.5 %. This mammogram was interpreted with the aid of an FDA-approved computer-aided dectection system. Electronically Signed By: Johan Gibbs MD 03/25/21 [id number]
== END ==
LOC: M WHC 09:21
PROVIDERS: ATTEND Nurse Practitioner Women's Health
DX: Z12.31 Encounter for screening mammogram for malignant neoplasm of breast (principal)

== ENCOUNTER → 2021-03-25 | Outpatient (REF) | payer BC | LOC: M SFHCWAGY 13:22 | PROVIDERS: ATTEND Nurse Practitioner Women's Health | DX: Z12.4 Encounter for screening for malignant neoplasm of cervix (principal) ==

== ENCOUNTER → 2022-03-26 | Outpatient (CLI) | payer BC | LOC: M WHC 09:08 | PROVIDERS: ATTEND Nurse Practitioner Women's Health | DX: Z12.31 Encounter for screening mammogram for malignant neoplasm of breast (principal); R92.8 Other abnormal and inconclusive findings on diagnostic imaging of breast; N63.42 Unspecified lump in left breast, subareolar ==

== ENCOUNTER → 2022-04-02 | Outpatient (CLI) | payer BC | LOC: M WHC 13:17 | PROVIDERS: ATTEND Advanced Practice Midwife | DX: Z12.31 Encounter for screening mammogram for malignant neoplasm of breast (principal) ==

== ENCOUNTER → 2022-04-16 | Outpatient (CLI) | payer BC ==
[~2022-04-16] MED LIST changes: +METO1TAB7 PO; +NORE1TAB94 PO; +PHEN15CA6 PO; +TOPI50TA9 PO; +TRAZ-257 PO
[2022-04-16 14:05] VITALS: BP 156/94
== END ==
LOC: M WHCPRO 12:12
PROVIDERS: ATTEND Surgery
DX: R92.8 Other abnormal and inconclusive findings on diagnostic imaging of breast (principal); N63.21 Unspecified lump in the left breast, upper outer quadrant
CPT/HCPCS: 11104; 19083; 77065; 88305; G0279

== ENCOUNTER → 2022-04-24 | Outpatient (CLI) | payer BC ==
[2022-04-24 14:13] LABS: BLOOD UREA NITROGEN 13 MG/DL (7-18); CALCIUM LEVEL 9.5 MG/DL (8.5-10.1); CARBON DIOXIDE LEVEL 22 MEQ/L (21-32); CHLORIDE LEVEL 112 MEQ/L (98-107); CREATININE FOR GFR 0.75 MG/DL (0.55-1.30); GLOMERULAR FILTRATION RATE > 60.0 (>58); GLUCOSE, FASTING 102 MG/DL (70-100); POTASSIUM SERUM 4.5 MEQ/L (3.5-5.1); SODIUM LEVEL 140 MEQ/L (136-145)
== END ==
LOC: M PLALAB 10:22
PROVIDERS: ATTEND Surgery
DX: C50.912 Malignant neoplasm of unspecified site of left female breast (principal)

== ENCOUNTER → 2022-04-25 | Outpatient (CLI) | payer BC ==
[~2022-04-25] MED LIST changes: +ATIV1TAB10 PO; +PROHANCE 279.3MG/ML 15ML VIAL As Ordered ONE; +PROHANCE 279.3MG/ML 5ML VIAL As Ordered ONE; +VITA100093 PO
== END ==
LOC: M RAD 16:37
PROVIDERS: ATTEND Surgery
DX: C50.912 Malignant neoplasm of unspecified site of left female breast (principal)
CPT/HCPCS: A9576; C8908

== ENCOUNTER → 2022-04-30 | Outpatient (CLI) | payer BC ==
[~2022-04-30] MED LIST changes: -PROHANCE 279.3MG/ML 15ML VIAL As Ordered ONE; -PROHANCE 279.3MG/ML 5ML VIAL As Ordered ONE
== END ==
LOC: M WUC 09:32
PROVIDERS: ATTEND Internal Medicine
DX: Z01.811 Encounter for preprocedural respiratory examination (principal)

== ENCOUNTER → 2022-05-01 | Outpatient (CLI) | payer BC | LOC: M LABSMTC 09:42 | PROVIDERS: ATTEND Anesthesiology | DX: Z01.812 Encounter for preprocedural laboratory examination (principal); Z20.822 Contact with and (suspected) exposure to COVID-19 ==

== ENCOUNTER 2022-05-06 08:52 | Day surgery (SDC) | payer BC ==
[~2022-05-06] VITALS: Ht 162.6 cm; Wt 85.6 kg
[~2022-05-06 08:52] MED LIST changes: +HEPARIN SOD (PORCINE) 5000UNITS/ML 1ML VIAL/SYRINGE SQ ONE; +ceFAZolin SOD 2 GM in IV 1 EA IV ONE
[2022-05-06] MEDS ORDERED: LR 1,000 ML IV SCH ×2 (09:25→17:25)
[2022-05-06] MEDS ORDERED: LIDOCAINE 1% SDV 30ML VIAL As Ordered ONE (12:48)
[2022-05-06] MEDS ORDERED: BUPIVACAINE HCL 0.25% 30ML VIAL As Ordered ONE (12:48)
[2022-05-06] MEDS ORDERED: MIDAZOLAM INJ 2MG/2ML VIAL (J2250 PER 1MG) As Ordered ONE (13:50)
[2022-05-06] MEDS ORDERED: ONDANSETRON 4MG 2ML VIAL As Ordered ONE (13:50)
[2022-05-06] MEDS ORDERED: SUGAMMADEX SODIUM 500 MG/5 ML VIAL (BRIDION) As Ordered ONE (13:50)
[2022-05-06] MEDS ORDERED: propofoL 200 MG/20 ML VIAL As Ordered ONE ×2 (13:50→17:11)
[2022-05-06] MEDS ORDERED: ACETAMINOPHEN 1000MG 100ML IV BTL (OFIRMEV) (J0131 PER 10MG) As Ordered ONE (13:50)
[2022-05-06] MEDS ORDERED: LIDOCAINE 2% 100MG/5ML SDV (FOR ANES.) As Ordered ONE (13:50)
[2022-05-06] MEDS ORDERED: ROCURONIUM BROMIDE 50 MG/5 ML VIAL As Ordered ONE (13:50)
[2022-05-06] MEDS ORDERED: fentaNYL 100 MCG/2 ML INJECTION As Ordered ONE ×4 (13:50→16:48)
[2022-05-06] MEDS ORDERED: dexameTHASONE 4 MG/ML 1ML VIAL (J1100 PER 1MG) As Ordered ONE (13:50)
[2022-05-06] MEDS ORDERED: KETOROLAC 60MG 2ML VIAL As Ordered ONE (16:59)
[2022-05-06] MEDS ORDERED: fentaNYL 100 MCG/2 ML INJECTION IV PRN (17:25)
[2022-05-06] MEDS ORDERED: ONDANSETRON 4MG 2ML VIAL IV PRN (17:25)
[2022-05-06] MEDS ORDERED: oxyCODONE 5MG TAB PO PRN (17:25)
[2022-05-06] MEDS ORDERED: MORPHINE 2 MG/ML 1ML VIAL IV PRN (17:25)
[2022-05-06] MEDS ORDERED: ROXI1TAB2 PO (17:44)
[2022-05-06 18:22] VITALS: BP 111/67
== END 2022-05-06 18:31 | disposition home or self-care (01) ==
LOC: M SDC 08:52
PROVIDERS: ATTEND Surgery
DX: C50.912 Malignant neoplasm of unspecified site of left female breast (principal); Z17.0 Estrogen receptor positive status [ER+]; N80.9 Endometriosis, unspecified; G43.909 Migraine, unspecified, not intractable, without status migrainosus; I10 Essential (primary) hypertension; E78.00 Pure hypercholesterolemia, unspecified; F10.11 Alcohol abuse, in remission; L82.1 Other seborrheic keratosis; K62.5 Hemorrhage of anus and rectum; Z79.890 Hormone replacement therapy; Z91.018 Allergy to other foods; Z91.010 Allergy to peanuts; F41.9 Anxiety disorder, unspecified; Z87.891 Personal history of nicotine dependence; Z80.2 Family history of malignant neoplasm of other respiratory and intrathoracic organs; Z80.0 Family history of malignant neoplasm of digestive organs; Z79.899 Other long term (current) drug therapy
CPT/HCPCS: 19125; 36415; 38525; 76942; 78195; 81025; 86850; 86900; 86901; 88307; A4648; A9520; J0131; J0690; J1100; J1644; J1885; J2250; J2405; J3010

== ENCOUNTER → 2022-05-20 | Outpatient (CLI) | payer BC ==
[~2022-05-20] MED LIST changes: -HEPARIN SOD (PORCINE) 5000UNITS/ML 1ML VIAL/SYRINGE SQ ONE; +ROXI1TAB2 PO; -ceFAZolin SOD 2 GM in IV 1 EA IV ONE
== END ==
LOC: M ONCR 10:28
PROVIDERS: ATTEND General Practice
DX: C50.412 Malignant neoplasm of upper-outer quadrant of left female breast (principal); L76.82 Other postprocedural complications of skin and subcutaneous tissue; F10.11 Alcohol abuse, in remission; N80.9 Endometriosis, unspecified; I10 Essential (primary) hypertension; E78.5 Hyperlipidemia, unspecified; G43.909 Migraine, unspecified, not intractable, without status migrainosus; Z79.3 Long term (current) use of hormonal contraceptives; Z79.899 Other long term (current) drug therapy; Z87.891 Personal history of nicotine dependence; Z80.0 Family history of malignant neoplasm of digestive organs; Z80.2 Family history of malignant neoplasm of other respiratory and intrathoracic organs; Z91.018 Allergy to other foods

== ENCOUNTER 2022-05-28 07:11 | Outpatient (RCR) | payer BC | END 2022-06-04 | LOC: M ONCR 07:11 | PROVIDERS: ATTEND General Practice | DX: C50.412 Malignant neoplasm of upper-outer quadrant of left female breast (principal) ==

== ENCOUNTER → 2022-07-04 | Outpatient (RCR) | payer BC ==
[~2022-07-04] MED LIST changes: +TAMO20TA8 PO
== END ==
LOC: M ONCR 06-16 09:38
PROVIDERS: ATTEND General Practice
DX: C50.412 Malignant neoplasm of upper-outer quadrant of left female breast (principal)

== ENCOUNTER → 2022-07-08 | Outpatient (CLI) | payer BC | LOC: M WHC 10:25 | PROVIDERS: ATTEND Obstetrics & Gynecology | DX: Z51.81 Encounter for therapeutic drug level monitoring (principal); Z79.810 Long term (current) use of selective estrogen receptor modulators (SERMs) ==

== ENCOUNTER 2022-07-11 09:15 | Outpatient (RCR) | payer BC ==
[2022-07-21] MEDS ORDERED: TAMO20TA8 PO (12:37)
== END 2022-08-04 ==
LOC: M ONCR 09:15
PROVIDERS: ATTEND General Practice
DX: C50.412 Malignant neoplasm of upper-outer quadrant of left female breast (principal)

== ENCOUNTER → 2022-10-22 | Outpatient (CLI) | payer BC ==
[~2022-10-22] MED LIST changes: +PHEN-239 PO; +RA V400C PO
== END ==
LOC: M LABSMTC 10:04
PROVIDERS: ATTEND Anesthesiology
DX: Z01.812 Encounter for preprocedural laboratory examination (principal); Z20.822 Contact with and (suspected) exposure to COVID-19

== ENCOUNTER 2022-10-27 13:03 | Day surgery (SDC) | payer BC ==
[~2022-10-27] VITALS: Ht 162.6 cm; Wt 78.5 kg
[~2022-10-27 13:03] MED LIST changes: +NS 1,000 ML IV ONE
[2022-10-27] MEDS ORDERED: LIDOCAINE 2% 100MG/5ML SDV (FOR ANES.) As Ordered ONE (14:43)
[2022-10-27] MEDS ORDERED: propofoL 200 MG/20 ML VIAL As Ordered ONE (14:43)
[2022-10-27 15:50] VITALS: BP 142/86
== END 2022-10-27 15:56 | disposition home or self-care (01) ==
LOC: M OPP 13:03
PROVIDERS: ATTEND Internal Medicine Gastroenterology
DX: Z12.11 Encounter for screening for malignant neoplasm of colon (principal); Z80.0 Family history of malignant neoplasm of digestive organs; D12.0 Benign neoplasm of cecum; K57.30 Diverticulosis of large intestine without perforation or abscess without bleeding; K64.4 Residual hemorrhoidal skin tags; K64.8 Other hemorrhoids; Z79.810 Long term (current) use of selective estrogen receptor modulators (SERMs); Z79.811 Long term (current) use of aromatase inhibitors; Z79.899 Other long term (current) drug therapy; Z91.018 Allergy to other foods; K76.89 Other specified diseases of liver; N80.559 Endometriosis of other parts of the colon, unspecified depth; I10 Essential (primary) hypertension; E78.00 Pure hypercholesterolemia, unspecified; F41.9 Anxiety disorder, unspecified; G43.909 Migraine, unspecified, not intractable, without status migrainosus; Z85.3 Personal history of malignant neoplasm of breast; Z92.3 Personal history of irradiation

== ENCOUNTER → 2023-01-16 | Outpatient (CLI) | payer BC ==
[~2023-01-16] MED LIST changes: +GABA-282 PO; +METO1TAB32 PO; -NS 1,000 ML IV ONE; +TOPI-254 PO; -TOPI50TA9 PO
== END ==
LOC: M ONCR 10:39
PROVIDERS: ATTEND Radiology Radiation Oncology
DX: C50.412 Malignant neoplasm of upper-outer quadrant of left female breast (principal); Z79.890 Hormone replacement therapy; Z79.899 Other long term (current) drug therapy; Z86.59 Personal history of other mental and behavioral disorders; Z87.891 Personal history of nicotine dependence; Z91.018 Allergy to other foods; Z92.3 Personal history of irradiation; Z98.890 Other specified postprocedural states

== ENCOUNTER → 2023-03-31 | Outpatient (CLI) | payer BC | LOC: M WHC 12:19 | PROVIDERS: ATTEND Nurse Practitioner Women's Health | DX: C50.912 Malignant neoplasm of unspecified site of left female breast (principal) | CPT/HCPCS: 77066; G0279 ==

== ENCOUNTER → 2023-07-21 | Outpatient (CLI) | payer BC ==
[~2023-07-21] MED LIST changes: +VITA400C83 PO
== END ==
LOC: M ONCR 09:47
PROVIDERS: ATTEND Radiology Radiation Oncology
DX: C50.412 Malignant neoplasm of upper-outer quadrant of left female breast (principal); R92.30 Dense breasts, unspecified; Z98.890 Other specified postprocedural states; Z92.3 Personal history of irradiation; Z79.810 Long term (current) use of selective estrogen receptor modulators (SERMs); Z79.899 Other long term (current) drug therapy; Z87.891 Personal history of nicotine dependence; Z91.018 Allergy to other foods

== ENCOUNTER → 2023-09-17 | Outpatient (CLI) | payer BC ==
[~2023-09-17] MED LIST changes: +TOPI-21 PO; -TOPI-254 PO
== END ==
LOC: M RAD 09:07
PROVIDERS: ATTEND Nurse Practitioner Family
DX: Q44.6 Cystic disease of liver (principal)

== ENCOUNTER → 2023-11-09 | Outpatient (CLI) | payer BC ==
[~2023-11-09] MED LIST changes: +PROHANCE 279.3MG/ML 15ML VIAL ONE
== END ==
LOC: M PLAIMG 09:40
PROVIDERS: ATTEND Nurse Practitioner Women's Health
DX: Z85.3 Personal history of malignant neoplasm of breast (principal)

== ENCOUNTER → 2023-11-20 | Outpatient (CLI) | payer BC ==
[~2023-11-20] MED LIST changes: -PROHANCE 279.3MG/ML 15ML VIAL ONE; +THERTAB21 PO
[2023-11-20 11:41] LABS: BASO # 0.1 10^3/uL (0.0-0.2); BASO % 1.4 % (0.0-1.0); EOS # 0.2 10^3/uL (0.0-0.5); EOS % 4.5 % (0.0-3.0); HEMATOCRIT 37.1 % (36.0-47.0); HEMOGLOBIN 12.5 g/dl (12.0-15.5); LYMPH # 1.8 10^3/uL (1.5-5.0); LYMPH % 34.6 % (24.0-44.0); MEAN CORPUSCULAR HEMOGLOBIN 32.1 pg (27.0-33.0); MEAN CORPUSCULAR HGB CONC 33.7 g/dl (32.0-36.5); MEAN CORPUSCULAR VOLUME 95.4 fl (80.0-96.0); MONO # 0.4 10^3/uL (0.0-0.8); MONO % 8.3 % (2.0-8.0); NEUTROPHILS # 2.6 10^3/uL (1.5-8.5); PLATELET COUNT, AUTOMATED 240 10^3/uL (150-450); RED BLOOD COUNT 3.89 10^6/uL (4.00-5.40); WHITE BLOOD COUNT 5.1 10^3/uL (4.0-10.0)
[2023-11-20 12:10] LABS: ALBUMIN 3.8 G/DL (3.2-5.2); ALKALINE PHOSPHATASE 71 U/L (46-116); ALT/SGPT 29 U/L (7.0-40); AST/SGOT 14 U/L (<34); BILIRUBIN,TOTAL 0.3 MG/DL (0.3-1.2); BLOOD UREA NITROGEN 14 MG/DL (9-23); CALCIUM LEVEL 8.7 MG/DL (8.5-10.1); CARBON DIOXIDE LEVEL 27 MMOL/L (20-31); CHLORIDE LEVEL 111 MMOL/L (98-107); FERRITIN 148.7 NG/ML (7.3-270.7); GLOMERULAR FILTRATION RATE > 60.0 (>51); GLUCOSE, FASTING 96 MG/DL (60-100); IRON (FE) 81 UG/DL (50-170); PERCENT SATURATION 29.2 % (13.2-45.0); POTASSIUM SERUM 4.1 MMOL/L (3.5-5.1); SODIUM LEVEL 142 MMOL/L (136-145); THYROID STIMULATING HORMONE 0.925 uIU/ML (0.55-4.78); TOTAL 25(OH) VITAMIN D 46.7 NG/ML (20.0-100.0); TOTAL IRON BINDING CAPACITY 277 UG/DL (250-425); TOTAL PROTEIN 6.6 G/DL (5.7-8.2)
[2023-11-20 12:11] LABS: FREE T4 0.96 NG/DL (0.89-1.76)
== END ==
LOC: M LAB 09:45
PROVIDERS: ATTEND Physician Assistant
DX: L60.3 Nail dystrophy (principal)

== ENCOUNTER → 2024-03-17 | Outpatient (REF) | payer BC ==
[2024-03-17 18:57] LABS: ALBUMIN 3.8 G/DL (3.2-5.2); ALKALINE PHOSPHATASE 75 U/L (46-116); ALT/SGPT 33 U/L (7.0-40); AST/SGOT 18 U/L (<34); BILIRUBIN,TOTAL 0.3 MG/DL (0.3-1.2); BLOOD UREA NITROGEN 13 MG/DL (9-23); CALCIUM LEVEL 8.8 MG/DL (8.5-10.1); CARBON DIOXIDE LEVEL 27 MMOL/L (20-31); CHLORIDE LEVEL 109 MMOL/L (98-107); CREATININE FOR GFR 0.69 MG/DL (0.55-1.30); GLOMERULAR FILTRATION RATE > 60.0 (>51); GLUCOSE, FASTING 106 MG/DL (60-100); MAGNESIUM LEVEL 1.8 MG/DL (1.8-2.4); POTASSIUM SERUM 4.1 MMOL/L (3.5-5.1); SODIUM LEVEL 141 MMOL/L (136-145); TOTAL PROTEIN 6.6 G/DL (5.7-8.2)
[2024-03-17 19:09] LABS: BASO # 0.1 10^3/uL (0.0-0.2); BASO % 1.4 % (0.0-1.0); EOS # 0.3 10^3/uL (0.0-0.5); EOS % 5.7 % (0.0-3.0); HEMATOCRIT 37.1 % (36.0-47.0); HEMOGLOBIN 12.7 g/dl (12.0-15.5); LYMPH # 1.7 10^3/uL (1.5-5.0); LYMPH % 39.5 % (24.0-44.0); MEAN CORPUSCULAR HEMOGLOBIN 32.5 pg (27.0-33.0); MEAN CORPUSCULAR HGB CONC 34.2 g/dl (32.0-36.5); MEAN CORPUSCULAR VOLUME 94.9 fl (80.0-96.0); MONO # 0.5 10^3/uL (0.0-0.8); MONO % 11.9 % (2.0-8.0); NEUTROPHILS # 1.8 10^3/uL (1.5-8.5); NEUTROPHILS % 41.3 % (36.0-66.0); PLATELET COUNT, AUTOMATED 243 10^3/uL (150-450); RED BLOOD COUNT 3.91 10^6/uL (4.00-5.40); WHITE BLOOD COUNT 4.4 10^3/uL (4.0-10.0)
== END ==
LOC: M LRY 17:10
PROVIDERS: ATTEND Specialist
DX: C50.919 Malignant neoplasm of unspecified site of unspecified female breast (principal)

== ENCOUNTER → 2024-04-05 | Outpatient (CLI) | payer BC | LOC: M WHC 08:56 | PROVIDERS: ATTEND Nurse Practitioner Women's Health | DX: C50.912 Malignant neoplasm of unspecified site of left female breast (principal); R92.323 Mammographic fibroglandular density, bilateral breasts | CPT/HCPCS: 77066; G0279 ==

== ENCOUNTER → 2024-06-27 | Outpatient (REF) | payer BC ==
[2024-06-27 18:40] LABS: BASO # 0.1 10^3/uL (0.0-0.2); EOS # 0.2 10^3/uL (0.0-0.5); EOS % 2.2 % (0.0-3.0); HEMATOCRIT 37.4 % (36.0-47.0); HEMOGLOBIN 12.5 g/dl (12.0-15.5); LYMPH % 21.9 % (24.0-44.0); MEAN CORPUSCULAR HEMOGLOBIN 32.9 pg (27.0-33.0); MEAN CORPUSCULAR HGB CONC 33.4 g/dl (32.0-36.5); MEAN CORPUSCULAR VOLUME 98.4 fl (80.0-96.0); MONO # 0.8 10^3/uL (0.0-0.8); MONO % 8.1 % (2.0-8.0); NEUTROPHILS # 6.1 10^3/uL (1.5-8.5); NEUTROPHILS % 65.7 % (36.0-66.0); PLATELET COUNT, AUTOMATED 301 10^3/uL (150-450); WHITE BLOOD COUNT 9.3 10^3/uL (4.0-10.0)
[2024-06-27 19:06] LABS: ALBUMIN 3.5 G/DL (3.2-5.2); ALKALINE PHOSPHATASE 94 U/L (46-116); ALT/SGPT 23 U/L (7.0-40); AST/SGOT 9 U/L (<34); BILIRUBIN,TOTAL 0.3 MG/DL (0.3-1.2); BLOOD UREA NITROGEN 10 MG/DL (9-23); CALCIUM LEVEL 8.3 MG/DL (8.5-10.1); CARBON DIOXIDE LEVEL 27 MMOL/L (20-31); CHLORIDE LEVEL 109 MMOL/L (98-107); CREATININE FOR GFR 0.74 MG/DL (0.55-1.30); GLOMERULAR FILTRATION RATE > 60.0 (>51); GLUCOSE, FASTING 113 MG/DL (60-100); MAGNESIUM LEVEL 1.9 MG/DL (1.8-2.4); POTASSIUM SERUM 4.2 MMOL/L (3.5-5.1); SODIUM LEVEL 142 MMOL/L (136-145); TOTAL PROTEIN 6.4 G/DL (5.7-8.2)
== END ==
LOC: M LABDRAWC 16:45
PROVIDERS: ATTEND Specialist
DX: C50.919 Malignant neoplasm of unspecified site of unspecified female breast (principal)

== ENCOUNTER → 2024-07-08 | Outpatient (REF) | payer BC ==
[~2024-07-08] MED LIST changes: +E-401CAP2 PO; +GABA-1172 PO; -GABA-282 PO; +TRET0.0540; -VITA400C83 PO
[2024-07-08 17:00] LABS: BASO % 0.8 % (0.0-1.0); EOS # 0.2 10^3/uL (0.0-0.5); EOS % 4.1 % (0.0-3.0); HEMATOCRIT 36.8 % (36.0-47.0); HEMOGLOBIN 12.5 g/dl (12.0-15.5); LYMPH # 1.5 10^3/uL (1.5-5.0); MEAN CORPUSCULAR HEMOGLOBIN 32.6 pg (27.0-33.0); MEAN CORPUSCULAR VOLUME 96.1 fl (80.0-96.0); MONO # 0.5 10^3/uL (0.0-0.8); MONO % 13.5 % (2.0-8.0); NEUTROPHILS # 1.4 10^3/uL (1.5-8.5); NEUTROPHILS % 39.3 % (36.0-66.0); PLATELET COUNT, AUTOMATED 216 10^3/uL (150-450); RED BLOOD COUNT 3.83 10^6/uL (4.00-5.40); WHITE BLOOD COUNT 3.6 10^3/uL (4.0-10.0)
[2024-07-08 17:40] LABS: ALBUMIN 3.6 G/DL (3.2-5.2); ALKALINE PHOSPHATASE 106 U/L (46-116); ALT/SGPT 33 U/L (7.0-40); AST/SGOT 16 U/L (<34); BILIRUBIN,TOTAL 0.3 MG/DL (0.3-1.2); BLOOD UREA NITROGEN 8 MG/DL (9-23); CALCIUM LEVEL 9.3 MG/DL (8.5-10.1); CARBON DIOXIDE LEVEL 26 MMOL/L (20-31); CHLORIDE LEVEL 109 MMOL/L (98-107); CREATININE FOR GFR 0.63 MG/DL (0.55-1.30); GLOMERULAR FILTRATION RATE > 60.0 (>51); GLUCOSE, FASTING 126 MG/DL (60-100); MAGNESIUM LEVEL 1.9 MG/DL (1.8-2.4); POTASSIUM SERUM 4.2 MMOL/L (3.5-5.1); SODIUM LEVEL 139 MMOL/L (136-145); TOTAL PROTEIN 6.7 G/DL (5.7-8.2)
== END ==
LOC: M LABDRAWC 16:33
PROVIDERS: ATTEND Internal Medicine Medical Oncology
DX: C50.919 Malignant neoplasm of unspecified site of unspecified female breast (principal)

== ENCOUNTER → 2024-07-21 | Outpatient (CLI) | payer BC | LOC: M ONCR 09:46 | PROVIDERS: ATTEND General Practice | DX: Z08 Encounter for follow-up examination after completed treatment for malignant neoplasm (principal); Z85.3 Personal history of malignant neoplasm of breast; Z92.3 Personal history of irradiation; Z79.810 Long term (current) use of selective estrogen receptor modulators (SERMs); Z87.891 Personal history of nicotine dependence; Z91.018 Allergy to other foods; Z79.899 Other long term (current) drug therapy; Z98.890 Other specified postprocedural states ==

== ENCOUNTER → 2025-02-15 | Outpatient (REF) | payer BC ==
[~2025-02-15] MED LIST changes: -LORA2TA PO; +LORA2TAB15 PO; -PHEN-239 PO; +PHEN37.511 PO; -RA V400C PO; +VITA268C PO
[2025-02-15 13:06] LABS: BASO # 0.1 10^3/uL (0.0-0.2); BASO % 1.1 % (0.0-1.0); EOS # 0.2 10^3/uL (0.0-0.5); EOS % 4.4 % (0.0-3.0); HEMATOCRIT 37.9 % (36.0-47.0); HEMOGLOBIN 12.6 g/dl (12.0-15.5); LYMPH # 1.9 10^3/uL (1.5-5.0); LYMPH % 36.2 % (24.0-44.0); MEAN CORPUSCULAR HEMOGLOBIN 31.8 pg (27.0-33.0); MEAN CORPUSCULAR HGB CONC 33.2 g/dl (32.0-36.5); MEAN CORPUSCULAR VOLUME 95.7 fl (80.0-96.0); MONO # 0.6 10^3/uL (0.0-0.8); NEUTROPHILS # 2.5 10^3/uL (1.5-8.5); NEUTROPHILS % 47.1 % (36.0-66.0); PLATELET COUNT, AUTOMATED 259 10^3/uL (150-450); RED BLOOD COUNT 3.96 10^6/uL (4.00-5.40); WHITE BLOOD COUNT 5.3 10^3/uL (4.0-10.0)
[2025-02-15 13:41] LABS: THYROID STIMULATING HORMONE 1.564 uIU/ML (0.55-4.78)
[2025-02-15 13:47] LABS: ALKALINE PHOSPHATASE 100 U/L (35-104); ALT/SGPT 32 U/L (7.0-40); AST/SGOT 25 U/L (<34); BILIRUBIN,TOTAL 0.4 MG/DL (0.3-1.2); BLOOD UREA NITROGEN 12 MG/DL (9-23); CALCIUM LEVEL 8.8 MG/DL (8.5-10.1); CARBON DIOXIDE LEVEL 27 MMOL/L (20-31); CHLORIDE LEVEL 108 MMOL/L (98-107); CHOLESTEROL LEVEL 211 MG/DL (<200); CHOLESTEROL RISK RATIO 3.41 (<5); CREATININE FOR GFR 0.72 MG/DL (0.55-1.30); GLOMERULAR FILTRATION RATE > 90.0 (>51); GLUCOSE, FASTING 90 MG/DL (60-100); HDL CHOLESTEROL 61.8 MG/DL (>40); LDL CHOLESTEROL 137.8 MG/DL (<100); NON-HDL-C 149.2 MG/DL; POTASSIUM SERUM 4.1 MMOL/L (3.5-5.1); SODIUM LEVEL 142 MMOL/L (136-145); TRIGLYCERIDES LEVEL 57 MG/DL (<150)
== END ==
LOC: M LABDRAWC 10:19
PROVIDERS: ATTEND Internal Medicine
DX: I10 Essential (primary) hypertension (principal); E78.00 Pure hypercholesterolemia, unspecified; K76.0 Fatty (change of) liver, not elsewhere classified

== ENCOUNTER → 2025-05-09 | Outpatient (REF) | payer BC ==
[~2025-05-09] MED LIST changes: +NORE-23 PO; -NORE1TAB94 PO
[2025-05-09 18:03] LABS: PLATELET COUNT, AUTOMATED 236 10^3/uL (150-450)
[2025-05-09 18:04] LABS: ALT/SGPT 21 U/L (7.0-40); AST/SGOT 22 U/L (<34); CALCIUM LEVEL 8.6 MG/DL (8.5-10.1); CARBON DIOXIDE LEVEL 26 MMOL/L (20-31); CHLORIDE LEVEL 109 MMOL/L (98-107); CREATININE FOR GFR 0.66 MG/DL (0.55-1.30); GLOMERULAR FILTRATION RATE > 90.0 (>51); POTASSIUM SERUM 3.9 MMOL/L (3.5-5.1); SODIUM LEVEL 145 MMOL/L (136-145)
== END ==
LOC: M SFHCCLAY 09:19
PROVIDERS: ATTEND Physician Assistant
DX: B35.1 Tinea unguium (principal)

== ENCOUNTER → 2025-07-21 | Outpatient (CLI) | payer BC ==
[~2025-07-21] MED LIST changes: -IBUP-1022 PO; -IBUP1TAB6 PO; +IBUP600T42 PO; +SFHIBU600 PO
== END ==
LOC: M ONCR 09:58
PROVIDERS: ATTEND General Practice
DX: Z08 Encounter for follow-up examination after completed treatment for malignant neoplasm (principal); Z85.3 Personal history of malignant neoplasm of breast; Z79.810 Long term (current) use of selective estrogen receptor modulators (SERMs); Z92.3 Personal history of irradiation; Z87.891 Personal history of nicotine dependence; Z91.018 Allergy to other foods; Z79.899 Other long term (current) drug therapy

== ENCOUNTER → 2025-08-08 | Outpatient (CLI) | payer BC ==
[2025-08-08 12:21] LABS: ALT/SGPT 18 U/L (7.0-40); AST/SGOT 17 U/L (<34); CALCIUM LEVEL 8.6 MG/DL (8.5-10.1); CARBON DIOXIDE LEVEL 26 MMOL/L (20-31); CHLORIDE LEVEL 111 MMOL/L (98-107); CREATININE FOR GFR 0.72 MG/DL (0.55-1.30); GLOMERULAR FILTRATION RATE > 90.0 (>51); POTASSIUM SERUM 4.0 MMOL/L (3.5-5.1); SODIUM LEVEL 144 MMOL/L (136-145)
[2025-08-08 12:34] LABS: BASO # 0.1 10^3/uL (0.0-0.2); BASO % 1.5 % (0.0-1.0); EOS # 0.4 10^3/uL (0.0-0.5); EOS % 7.1 % (0.0-3.0); LYMPH # 2.2 10^3/uL (1.5-5.0); LYMPH % 40.5 % (24.0-44.0); MONO # 0.6 10^3/uL (0.0-0.8); MONO % 11.6 % (2.0-8.0); NEUTROPHILS # 2.2 10^3/uL (1.5-8.5); NEUTROPHILS % 38.9 % (36.0-66.0); PLATELET COUNT, AUTOMATED 226 10^3/uL (150-450)
== END ==
LOC: M LABDRAWC 09:11
PROVIDERS: ATTEND Internal Medicine
DX: E78.00 Pure hypercholesterolemia, unspecified (principal); I10 Essential (primary) hypertension

== ENCOUNTER → 2025-09-05 | Outpatient (CLI) | payer BC | LOC: M WHC 10:32 | DX: C50.919 Malignant neoplasm of unspecified site of unspecified female breast (principal); M85.89 Other specified disorders of bone density and structure, multiple sites ==

== ENCOUNTER → 2025-09-08 | Outpatient (CLI) | payer BC | LOC: M WHC 08:43 | PROVIDERS: ATTEND Advanced Practice Midwife | DX: Z12.31 Encounter for screening mammogram for malignant neoplasm of breast (principal); Z85.3 Personal history of malignant neoplasm of breast; R92.323 Mammographic fibroglandular density, bilateral breasts ==

== ENCOUNTER → 2025-09-11 | Outpatient (CLI) | payer BC ==
[2025-09-11 12:31] LABS: PLATELET COUNT, AUTOMATED 264 10^3/uL (150-450)
[2025-09-11 12:40] LABS: ALT/SGPT 20 U/L (7.0-40); AST/SGOT 18 U/L (<34); CALCIUM LEVEL 8.3 MG/DL (8.5-10.1); CARBON DIOXIDE LEVEL 25 MMOL/L (20-31); CHLORIDE LEVEL 111 MMOL/L (98-107); CREATININE FOR GFR 0.69 MG/DL (0.55-1.30); GLOMERULAR FILTRATION RATE > 90.0 (>51); POTASSIUM SERUM 3.7 MMOL/L (3.5-5.1); SODIUM LEVEL 145 MMOL/L (136-145)
[2025-09-11 12:58] LABS: CA15-3 ANTIGEN 13.6 U/ML (<32.4)
== END ==
LOC: M LABDRAWC 09:15
PROVIDERS: ATTEND Internal Medicine Medical Oncology
DX: C50.919 Malignant neoplasm of unspecified site of unspecified female breast (principal)

== ENCOUNTER → 2025-09-18 | Outpatient (REF) | payer BC ==
[2025-09-18 18:37] LABS: BASO # 0.1 10^3/uL (0.0-0.2); BASO % 1.3 % (0.0-1.0); EOS # 0.2 10^3/uL (0.0-0.5); EOS % 3.6 % (0.0-3.0); LYMPH # 1.9 10^3/uL (1.5-5.0); LYMPH % 34.6 % (24.0-44.0); MONO # 0.5 10^3/uL (0.0-0.8); MONO % 8.1 % (2.0-8.0); NEUTROPHILS # 2.9 10^3/uL (1.5-8.5); NEUTROPHILS % 51.9 % (36.0-66.0); PLATELET COUNT, AUTOMATED 258 10^3/uL (150-450)
[2025-09-18 18:41] LABS: ALT/SGPT 20 U/L (7.0-40); AST/SGOT 18 U/L (<34); CALCIUM LEVEL 8.5 MG/DL (8.5-10.1); CARBON DIOXIDE LEVEL 25 MMOL/L (20-31); CHLORIDE LEVEL 113 MMOL/L (98-107); CREATININE FOR GFR 0.67 MG/DL (0.55-1.30); GLOMERULAR FILTRATION RATE > 90.0 (>51); POTASSIUM SERUM 4.0 MMOL/L (3.5-5.1); SODIUM LEVEL 144 MMOL/L (136-145)
== END ==
LOC: M LABDRAWC 17:11
PROVIDERS: ATTEND Physician Assistant
DX: L60.3 Nail dystrophy (principal)